=== PATIENT | male | born 1970 | race Caucasian/White ===

== ENCOUNTER 2018-01-06 10:28 | Emergency (ER) | payer SELFPAY ==
--- NOTE | 2018-01-06 11:04 | EDPHYS ---
Physician Documentation [facility] Name: Guillermo Acosta Age: 47 yrs Sex: Male : 1970 Arrival Date: 01/06/2018 Time: 10:30 Bed 20 Private MD: [place] San H ED Physician Wilmar Nicolas HPI: 01/06 10:58 This 47 yrs old Male presents to ER via Ambulatory with complaints of Ear jmm Pain, Jaw Pain. 10:58 The patient presents with pain. The complaints affect the right ear. Onset: The jmm symptoms/episode began/occurred gradually, 2 week(s) ago. Modifying factors: The symptoms are alleviated by nothing, the symptoms are aggravated by nothing. Associated signs and symptoms: Pertinent negatives: cough, fever. This is a 47 year old male with a history of HTN that presents to [facility] ED with right ear pain beginning 2 weeks ago. Patient states having no relieve after taking left over amoxicillin. COmplains of pain radiating to his jaw. Denies fever, denies cough. . Historical: - Allergies: 10:48 No Known Allergies; aj1 - Home Meds: 10:48 Lisinopril Oral [Active]; aj1 - PMHx: 10:48 Hypertension; Kidney stones; aj1 - Immunization history:: Flu vaccine is not up to date. - Social history:: Smoking status: Patient uses tobacco products, smokes one-half pack cigarettes per day. - Ebola Screening: : Patient denies travel to an Ebola-affected area in the 21 days before illness onset. ROS: 10:58 Constitutional: Negative for fever, chills, and weight loss. jmm 10:58 Cardiovascular: Negative for chest pain, palpitations, and edema, Respiratory: Negative for shortness of breath, cough, wheezing, and pleuritic chest pain, Abdomen/GI: Negative for abdominal pain, nausea, vomiting, diarrhea, and constipation. 10:58 ENT: Positive for ear pain. 10:58 All other systems are negative. Exam: 10:58 Head/Face: atraumatic. jmm 10:58 Chest/axilla: Normal chest wall appearance and motion. Cardiovascular: Regular rate and rhythm. No edema appreciated Respiratory: Normal respirations, no respiratory distress appreciated Abdomen/GI: Non distended, soft Skin: General appearance color normal MS/ Extremity: Moves all extremities, no obvious deformities appreciated, no edema noted to the lower extremities Neuro: Awake and alert, normal gait Psych: Behavior is normal, Mood is normal, Patient is cooperative and pleasant 10:58 Constitutional: The patient appears in no acute distress, alert, awake. 10:58 ENT: TM's: erythema, that is moderate, on the right, No mastoid tenderenss. Vital Signs: 10:48 BP 173 / 118; Pulse 85; Resp 18; Temp 97.5; Pulse Ox 97% on R/A; Weight 108.86 kg (R); aj1 Height 5 ft. 9 in. (175.26 cm); 11:20 BP 161 / 103; Pulse 76; Resp 18; Pulse Ox 99% on R/A; em 10:48 Body Mass Index 35.44 (108.86 kg, 175.26 cm) aj1 MDM: 10:58 Patient medically screened. [facility] 10:58 Data reviewed: vital signs, nurses notes. Counseling: I had a detailed discussion with [facility] the patient and/or guardian regarding: the historical points, exam findings, and any diagnostic results supporting the discharge/admit diagnosis, the need for outpatient follow up, to return to the emergency department if symptoms worsen or persist or if there are any questions or concerns that arise at home. Administered Medications: 11:12 Drug: Motrin 800 mg Route: PO; em 11:16 Follow up: Response: No adverse reaction em 11:14 Not Given (Physician Discretion): Tetracaine Drops 0.5 % 1 drops Ophthalmic once em 11:14 Drug: Tetracaine Solution (0.5 %) 1 drops {Note: given in right ear.} Route: Topical; em Site: face; 11:16 Follow up: Response: No adverse reaction em Disposition: 12:17 Co-signature as Attending Physician, Wilmar Nicolas MD. rn Disposition: 01/06/18 11:03 Discharged to Home. Impression: Acute serous otitis media. - Condition is Stable. - Discharge Instructions: Otitis Media, Adult. - Prescriptions for Clindamycin HCl 300 mg Oral Capsule - take 1 capsule by ORAL route every 6 hours for 10 days; 40 capsule. Ultracet 37.5- 325 mg Oral Tablet - take 1 tablet by ORAL route every 6 hours - for up to 5 days; do not exceed 8 tablets per day.; 12 tablet. - Medication Reconciliation Form, Thank You Letter, Antibiotic Education, Prescription Opioid Use form. - Follow up: Jaswinder, DO [place]; When: 2 - 3 days; Reason: Recheck today's complaints, Continuance of care, Re-evaluation by your physician. Signatures: Maria C Rossi RN RN aj1 Moris Rock PA PA josem Narinder Fajardo, INSIDE TECHNICAL SALES REPRESENTATIVE INSIDE TECHNICAL SALES REPRESENTATIVE em Wilmar Nicolas MD MD furniture associate: (The following items were deleted from the chart) 11:21 11:03 01/06/2018 11:03 Discharged to Home. Impression: Acute serous otitis media. em Condition is Stable. Forms are Medication Reconciliation Form, Thank You Letter, Antibiotic Education, Prescription Opioid Use. Follow up: [place] San; When: 2 - 3 days; Reason: Recheck today's complaints, Continuance of care, Re-evaluation by your physician. beverly
--- NOTE | 2018-01-06 11:04 | ER ---
Nurse's Notes [facility] Name: Guillermo Acosta Age: 47 yrs Sex: Male : 1970 Arrival Date: 01/06/2018 Time: 10:30 Bed 20 Private MD: [place] San H Diagnosis: Acute serous otitis media Presentation: 01/06 10:46 Presenting complaint: Patient states: He's been having pain in his right ear for the aj1 past 2 weeks. This morning he woke up and the pain is radiating down into his jaw. He has some left over Amoxicillin so he took that last week, which helped, but now the pain has come back. Transition of care: patient was not received from another setting of care. Onset of symptoms was November 2017. Risk Assessment: Do you want to hurt yourself or someone else? Patient reports no desire to harm self or others. Initial Sepsis Screen: Does the patient meet any 2 criteria? No. Patient's initial sepsis screen is negative. Does the patient have a suspected source of infection? No. Patient's initial sepsis screen is negative. Care prior to arrival: None. 10:46 Method Of Arrival: Ambulatory aj1 10:46 Acuity: CHECO 4 aj1 Triage Assessment: 10:48 General: Appears in no apparent distress. uncomfortable, Behavior is calm, cooperative, aj1 appropriate for age. Pain: Complains of pain in right ear Pain radiates to right jaw Pain currently is 7 out of 10 on a pain scale. EENT: Reports ear pain, jaw pain. Neuro: Level of Consciousness is awake, alert, obeys commands. Cardiovascular: Patient's skin is warm and dry. Respiratory: Airway is patent Respiratory effort is even, unlabored, Respiratory pattern is regular, symmetrical. Historical: - Allergies: 10:48 No Known Allergies; aj1 - Home Meds: 10:48 Lisinopril Oral [Active]; aj1 - PMHx: 10:48 Hypertension; Kidney stones; aj1 - Immunization history:: Flu vaccine is not up to date. - Social history:: Smoking status: Patient uses tobacco products, smokes one-half pack cigarettes per day. - Ebola Screening: : Patient denies travel to an Ebola-affected area in the 21 days before illness onset. Screenin:18 Abuse screen: Denies threats or abuse. Nutritional screening: No deficits noted. em Tuberculosis screening: No symptoms or risk factors identified. Fall Risk None identified. Assessment: 11:00 General: Appears in no apparent distress. comfortable, Behavior is calm, cooperative. em Pain: Complains of pain in right ear Pain currently is 7 out of 10 on a pain scale. Neuro: Level of Consciousness is awake, alert, obeys commands, Oriented to person, place, time, situation. Cardiovascular: Capillary refill < 3 seconds Patient's skin is warm and dry. Respiratory: Airway is patent Respiratory effort is even, unlabored, Respiratory pattern is regular, symmetrical. GI: Abdomen is flat. : No signs and/or symptoms were reported regarding the genitourinary system. EENT: Ear canal clear on right ear. Derm: Skin is intact, Skin is pink, warm \T\ dry. Musculoskeletal: Range of motion: intact in all extremities. Vital Signs: 10:48 BP 173 / 118; Pulse 85; Resp 18; Temp 97.5; Pulse Ox 97% on R/A; Weight 108.86 kg (R); aj1 Height 5 ft. 9 in. (175.26 cm); 11:20 BP 161 / 103; Pulse 76; Resp 18; Pulse Ox 99% on R/A; em 10:48 Body Mass Index 35.44 (108.86 kg, 175.26 cm) aj1 ED Course: 10:30 Patient arrived in ED. sb2 10:30 [place] San DO is Private Physician. sb2 10:47 Triage completed. aj1 10:48 Arm band placed on Patient placed in an exam room. aj1 10:50 Moris Rock PA is PHCP. jmm 10:50 Wilmar Nicolas MD is Attending Physician. jmm 11:00 Narinder Fajardo LVN is Primary Nurse. em 11:03 [place] San DO is Referral Physician. jmm 11:18 Patient has correct armband on for positive identification. Bed in low position. Call em light in reach. 11:18 No provider procedures requiring assistance completed. Patient did not have IV access em during this emergency room visit. Administered Medications: 11:12 Drug: Motrin 800 mg Route: PO; em 11:16 Follow up: Response: No adverse reaction em 11:14 Not Given (Physician Discretion): Tetracaine Drops 0.5 % 1 drops Ophthalmic once em 11:14 Drug: Tetracaine Solution (0.5 %) 1 drops {Note: given in right ear.} Route: Topical; em Site: face; 11:16 Follow up: Response: No adverse reaction em Outcome: 11:03 Discharge ordered by . beverly 11:18 Discharged to home ambulatory. em 11:18 Condition: good 11:18 Discharge instructions given to patient, Instructed on discharge instructions, follow up and referral plans. medication usage, Demonstrated understanding of instructions, follow-up care, medications, Prescriptions given X 2. 11:21 Patient left the ED. em Signatures: Maria C Rossi RN RN aj1 Moris Rock PA PA jmm Munoz, Edgar, CAMPAIGN ASSISTANT CAMPAIGN ASSISTANT em Cathy Donaldson sb2
[2018-01-06] MEDS ORDERED: TETRACAINE HCL 0.5% 2ML OPTH ONE (11:12)
[2018-01-06] MEDS ORDERED: IBUPROFEN 200 MG TAB PO ONE (11:12)
[2018-01-06] MEDS ORDERED: IBUPROFEN 400 MG TAB ONE (11:12)
[2018-01-06 11:27] VITALS: TEMP 97.5
[2018-01-06 11:29] VITALS: BP 161/103; O2SAT 99
== END 2018-01-06 11:21 | disposition home or self-care (01) ==
LOC: ER 10:28
DX: H65.01 Acute serous otitis media, right ear (principal); I10 Essential (primary) hypertension; F17.210 Nicotine dependence, cigarettes, uncomplicated
CPT/HCPCS: 99283

== ENCOUNTER 2018-01-24 18:14 | Emergency (ER) | payer SELFPAY ==
[2018-01-24] MEDS ORDERED: KETOROLAC 30 MG/ML INJ ONE (19:19)
[2018-01-24] MEDS ORDERED: NA CHLORIDE 0.9% 1,000 ML ONE (19:19)
[2018-01-24] MEDS ORDERED: ONDANSETRON 4 MG/2 ML VIAL ONE (19:19)
--- NOTE | 2018-01-24 19:28 | RAD REPORT ---
EXAM DESCRIPTION: CT - Stone Protocol - 01/24/2018 7:13 pm CLINICAL HISTORY: Abdominal pain, right flank pain COMPARISON: CT stone 2016 TECHNIQUE: Axial 5 mm thick images were obtained without oral or IV contrast. The [id number] span s the entirety of the system including uppermost abdomen and lung bases. All CT scans are performed using dose optimization technique as appropriate and may include automated exposure control or mA/KV adjustment according to patient size. FINDINGS: No hydronephrosis is present and no obstructing ureteral calculi. No suspicious renal mass es. Isodense masses and pyelonephritis are not excluded on a stone protocol CT scan. Urinary bladder is contracted limiting assessment. No bladder calculus seen. Prostate gland and seminal vesicles are normal range. Imaged portions of the liver, spleen and pancreas show no suspicious findings on non-contrast imaging . Gallbladder is contracted. Gallstones can be occult. Small gallstone is suspected in the fundus. An active gallbladder process is not seen. No biliary tree dilatation. No significant adrenal finding. No suspicious bowel findings. Appendix is normal. No mass or bulky lymphadenopathy. Clips are present near each inguinal canal presumably from prior he rnia repair. No residual or recurrent abdominal wall hernia. No abdominal wall hematoma. No free air, free fluid or inflammatory stranding. Patient has disc and bony degenerative change present. Prominent endplate spurring seen in the lower thoracic spine. Bilateral L5 pars interarticularis defects are present without spondylolisthesis. Rig ht L4 pars defect is present. Very advanced facet degenerative change present on the left at L4-5. L4 has shown slight anterior subluxation progression since the 2016 study. The L4-5 degenerative disc d isease has progressed. IMPRESSION: No hydronephrosis, obstructing calculus or acute finding. Isodense masses and pyelonephritis are not excluded on stone protocol technique. No acute GI process identifiable. No emergent finding seen. No residual or recurrent hernia defect and no muscle or abdominal wall hematoma seen. Progressive degenerative disc disease at L4-5. Right-sided L4 pars interarticularis defects seen. Sandro ateral L5 pars defects are present.
[2018-01-24 19:58] LABS: Urine Blood 1+ (NEG); Urine Glucose NEGATIVE (NEG); Urine Protein TRACE (NEG); Urine Specific Gravity >1.030 (1.005-1.030); Urine pH 5.5 (5.0-7.0)
[2018-01-24 20:01] LABS: Urine Bacteria NONE SEEN /HPF (NONE SEEN); Urine Culture Reflex Order NOT NEEDED
[2018-01-24 20:06] LABS: Albumin 3.6 g/dL (3.4-5.0); Bilirubin Direct 0.2 mg/dL (0-0.2); Bilirubin Total 0.5 mg/dL (0.2-1.0); Potassium 4.1 mmol/L (3.5-5.1); Protein, Total 7.4 g/dL (6.4-8.2)
[2018-01-24 20:40] LABS: Absolute Lymphocytes (CBC) 2.2 K/uL (0.7-4.9); Absolute Monocytes 0.4 K/uL (0.1-1.3); Absolute Neutrophil 2.8 K/uL (1.8-8.0); Basophils % 0.7 % (0-1.3); Eosinophils % 2.3 % (0-4.4); Hematocrit 42.4 % (39.6-49.0); Lymphocytes % 39.7 % (15.3-44.8); MCH 31.6 pg (27.0-35.0); MCV 92.4 fL (80-100); MPV 9.5 fL (7.6-11.3); Monocytes % 6.9 % (3.3-12.3); RBC Red Blood Cell Count 4.58 M/uL (4.33-5.43)
--- NOTE | 2018-01-24 20:46 | EDPHYS ---
Physician Documentation [facility] Name: Guillermo Acosta Age: 47 yrs Sex: Male : 1970 Arrival Date: 01/24/2018 Time: 18:15 Bed 13 Private MD: [place] [facility] H ED Physician Wilmar Nicolas HPI: 01/24 19:05 This 47 yrs old Male presents to ER via Ambulatory with complaints of Back cp Pain, Possible Kidney Stone. 19:05 The patient presents with pain that is acute. The symptoms are located in the right mid cp back and right low back. Onset: The symptoms/episode began/occurred 3 day(s) ago. The pain does not radiate. Associated signs and symptoms: Pertinent negatives: abdominal pain, chest pain, constipation, fever, incontinence, numbness, urinary retention, weakness. Severity of symptoms: in the emergency department the symptoms are unchanged, despite home interventions. 19:05 Patient reports history of kidney stones and pain worsened after lifting heavy cp generator at work 2 days ago. Historical: - Allergies: 18:37 No Known Allergies; aj1 - Home Meds: 18:37 lisinopril Oral [Active]; aj1 - PMHx: 18:37 Hypertension; Kidney stones; aj1 - Immunization history:: Flu vaccine is not up to date. - Social history:: Smoking status: Patient uses tobacco products, smokes one-half pack cigarettes per day. - Ebola Screening: : Patient denies travel to an Ebola-affected area in the 21 days before illness onset. ROS: 19:10 Constitutional: Negative for body aches, chills, fever, poor PO intake. cp 19:10 Eyes: Negative for injury, pain, redness, and discharge. cp 19:10 ENT: Negative for drainage from ear(s), ear pain, sore throat, difficulty swallowing, difficulty handling secretions. 19:10 Cardiovascular: Negative for chest pain, edema, palpitations. 19:10 Respiratory: Negative for cough, shortness of breath, wheezing. 19:10 Abdomen/GI: Negative for abdominal pain, nausea, vomiting, and diarrhea, constipation, anorexia, black/tarry stool, rectal bleeding, bowel incontinence. 19:10 Back: Positive for pain at rest, pain with movement, of the right mid back and right low back, Negative for decreased range of motion. 19:10 : Negative for urinary symptoms, difficulty urinating, bladder incontinence, testicular pain 19:10 MS/extremity: Negative for injury or acute deformity, decreased range of motion, paresthesias, swelling. 19:10 Neuro: Negative for altered mental status, gait disturbance, headache, numbness, weakness. 19:10 All other systems are negative. Exam: 19:15 Constitutional: The patient appears in no acute distress, alert, awake, non-toxic, well cp developed, well nourished. 19:15 Head/Face: Normocephalic, atraumatic. cp 19:15 Eyes: Periorbital structures: appear normal, Conjunctiva: normal, no exudate, no injection, Sclera: no appreciated abnormality, Lids and lashes: appear normal, bilaterally. 19:15 ENT: External ear(s): are unremarkable, Nose: is normal, Mouth: Lips: moist, Oral mucosa: pink and intact, moist, Posterior pharynx: is normal, airway is patent, no erythema, no exudate. 19:15 Neck: ROM/movement: is normal, is supple, without pain, no range of motions limitations, no nuchal rigidity. 19:15 Chest/axilla: Inspection: normal, Palpation: is normal, no crepitus, no tenderness. 19:15 Cardiovascular: Rate: normal, Rhythm: regular, Edema: is not appreciated, JVD: is not appreciated. 19:15 Respiratory: the patient does not display signs of respiratory distress, Respirations: normal, no use of accessory muscles, no retractions, no splinting, no tachypnea, labored breathing, is not present, Breath sounds: are clear throughout, no decreased breath sounds, no stridor, no wheezing. 19:15 Abdomen/GI: Inspection: abdomen appears normal, Bowel sounds: active, all quadrants, Palpation: abdomen is soft and non-tender, in all quadrants, rebound tenderness, is not appreciated, voluntary guarding, is not appreciated, involuntary guarding, is not appreciated. 19:15 Back: pain, that is moderate, of the right mid back and right low back, ROM is painful, with flexion, vertebral tenderness, is not appreciated, muscle spasm, is not present, Straight leg raises: of both lower extremities does not illicit pain. 19:15 Musculoskeletal/extremity: Exam is negative for bony tenderness, calf tenderness, decreased range of motion, deformity, edema, injury. 19:15 Skin: cellulitis, is not appreciated, no rash present. 19:15 Neuro: Orientation: to person, place \T\ time. Mentation: lucid, able to follow commands, Cerebellar function: is grossly normal, Motor: moves all fours, strength is normal, Sensation: no obvious gross deficits. Vital Signs: 18:37 BP 158 / 102; Pulse 65; Resp 18; Temp 97.6; Pulse Ox 97% on R/A; Weight 108.86 kg (R); aj1 Height 5 ft. 10 in. (177.80 cm) (R); Pain 7/10; 19:30 BP 152 / 99; Pulse 63; Resp 18; Pulse Ox 99% on R/A; kr2 20:58 BP 140 / 88; Pulse 66; Resp 17; Pulse Ox 98% on R/A; kr2 18:37 Body Mass Index 34.44 (108.86 kg, 177.80 cm) aj1 MDM: 18:39 Patient medically screened. cp 19:00 Differential diagnosis: Cholelithiasis chronic back pain, ruptured disc, spinal injury, cp sprain, Ureterolithiasis vertebral fracture. 20:45 Data reviewed: vital signs, nurses notes, lab test result(s), radiologic studies, CT cp scan. 20:45 Counseling: I had a detailed discussion with the patient and/or guardian regarding: the cp historical points, exam findings, and any diagnostic results supporting the discharge/admit diagnosis, lab results, radiology results, to return to the emergency department if symptoms worsen or persist or if there are any questions or concerns that arise at home. Response to treatment: the patient's symptoms have mildly improved after treatment, VSS. CT negative for acute findings. Will discharge to home for continued monitoring. 01/24 18:59 Order name: Basic Metabolic Panel; Complete Time: 20:08 cp 01/24 20:08 Interpretation: Normal except: CL 109; GFR 65. cp 01/24 18:59 Order name: CBC with Diff; Complete Time: 20:41 cp 01/24 18:59 Order name: Creatinine for Radiology; Complete Time: 20:08 cp 01/24 18:59 Order name: Hepatic Function; Complete Time: 20:08 cp 01/24 20:09 Interpretation: Normal except: ALK 127; GLOB 3.8; A/G 0.9. 01/24 18:59 Order name: Lipase; Complete Time: 20:08 01/24 19:25 Order name: Urine Microscopic Only; Complete Time: 20:08 01/24 20:09 Interpretation: Normal except: URBC 10-20. 01/24 18:59 Order name: IV Saline Lock; Complete Time: 19:39 01/24 18:59 Order name: Labs collected and sent; Complete Time: 19:39 01/24 18:59 Order name: CT Stone Protocol; Complete Time: 19:38 01/24 19:39 Interpretation: Report reviewed. 01/24 19:25 Order name: Urine Dipstick-Ancillary (obtain specimen); Complete Time: 19:26 01/24 19:29 Order name: Urine Dipstick--Ancillary (enter results); Complete Time: 20:08 mw2 Administered Medications: 19:30 Drug: NS 0.9% 1000 ml Route: IV; Rate: 1 bolus; Site: left antecubital; kr2 20:30 Follow up: Response: No adverse reaction; IV Status: Completed infusion kr2 19:35 Drug: Zofran 4 mg Route: IVP; Site: left antecubital; kr2 20:00 Follow up: Response: No adverse reaction kr2 19:36 Drug: TORadol 30 mg Route: IVP; Site: left antecubital; kr2 20:00 Follow up: Response: No adverse reaction; Pain is decreased kr2 Disposition: 01/25 17:29 Co-signature as Attending Physician, Wilmar Nicolas MD. rn Disposition: 01/24/18 20:45 Discharged to Home. Impression: Low back pain. - Condition is Stable. - Discharge Instructions: Back Pain, Adult, Back Exercises, [id number]. - Prescriptions for Ultracet 37.5- 325 mg Oral Tablet - take 1 tablet by ORAL route every 6 hours - for up to 5 days; do not exceed 8 tablets per day. no driving while taking medication; 20 tablet. Cyclobenzaprine 10 mg Oral Tablet - take 1 tablet by ORAL route every 8 hours As needed no driving while taking medication; 20 tablet. Medrol (Jose Miguel) 4 mg Oral Tablets, Dose Pack - take 1 tablet by ORAL route as directed - follow package instructions; 1 packet. - Medication Reconciliation Form, Thank You Letter, Antibiotic Education, Prescription Opioid Use form. - Follow up: Private Physician; When: 2 - 3 days; Reason: Recheck today's complaints. - Problem is new. - Symptoms have improved. Signatures: Dispatcher [employer] EDMaria C Petersen RN RN aj1 Wilmar Nicolas MD MD rn Page, Corey, PA PA cp Bettina Turner RN RN kr2 Corrections: (The following items were deleted from the chart) 01/24 21:01 20:45 01/24/2018 20:45 Discharged to Home. Impression: Low back pain. Condition is kr2 Stable. Forms are Medication Reconciliation Form, Thank You Letter, Antibiotic Education, Prescription Opioid Use. Follow up: Private Physician; When: 2 - 3 days; Reason: Recheck today's complaints. Problem is new. Symptoms have improved. cp 01/25 17:10 01/24 19:05 Patient reports history of kidney stones and pain worsened after lifting cp heavy object at work 3 days ago. cp
--- NOTE | 2018-01-24 20:46 | ER ---
Nurse's Notes [facility] Name: Guillermo Acosta Age: 47 yrs Sex: Male : 1970 Arrival Date: 01/24/2018 Time: 18:15 Bed 13 Private MD: Trenton San H Diagnosis: Low back pain Presentation: 01/24 18:35 Presenting complaint: Patient states: "I have a history of kidney stones, and my right aj1 side has been hurting for the past 3 days. Also Sunday I was lifting a generator and I did something to my back" Reports right flank pain, low back pain, midback pain. Reports dysuria, urinary frequency. Denies fever. Transition of care: patient was not received from another setting of care. Onset of symptoms was January 21, 2018. Risk Assessment: Do you want to hurt yourself or someone else? Patient reports no desire to harm self or others. Initial Sepsis Screen: Does the patient meet any 2 criteria? No. Patient's initial sepsis screen is negative. Does the patient have a suspected source of infection? No. Patient's initial sepsis screen is negative. Care prior to arrival: None. 18:35 Method Of Arrival: Ambulatory aj1 18:35 Acuity: CHECO 3 aj1 Triage Assessment: 18:37 General: Appears in no apparent distress. uncomfortable, Behavior is calm, cooperative, aj1 appropriate for age. Pain: Complains of pain in low back area, mid back area and anterior aspect of right lateral abdomen Pain currently is 7 out of 10 on a pain scale. Neuro: Level of Consciousness is awake, alert, obeys commands. Cardiovascular: Patient's skin is warm and dry. Respiratory: Airway is patent Respiratory effort is even, unlabored, Respiratory pattern is regular, symmetrical. : Reports burning with urination, urinary frequency. Musculoskeletal: Range of motion: intact in all extremities. Historical: - Allergies: 18:37 No Known Allergies; aj1 - Home Meds: 18:37 lisinopril Oral [Active]; aj1 - PMHx: 18:37 Hypertension; Kidney stones; aj1 - Immunization history:: Flu vaccine is not up to date. - Social history:: Smoking status: Patient uses tobacco products, smokes one-half pack cigarettes per day. - Ebola Screening: : Patient denies travel to an Ebola-affected area in the 21 days before illness onset. Screenin:45 Abuse screen: Denies threats or abuse. Denies injuries from another. Nutritional kr2 screening: No deficits noted. Tuberculosis screening: No symptoms or risk factors identified. Fall Risk None identified. Assessment: 18:45 General: Appears in no apparent distress. uncomfortable, well groomed, Behavior is kr2 calm, cooperative, appropriate for age. Pain: Complains of pain in lower back Pain currently is 7 out of 10 on a pain scale. Quality of pain is described as sharp, Is continuous, Alleviated by nothing. Neuro: Level of Consciousness is awake, alert, obeys commands, Oriented to person, place, time, situation, Appropriate for age. Cardiovascular: Capillary refill < 3 seconds in bilateral fingers Patient's skin is warm and dry. Respiratory: Airway is patent Respiratory effort is even, unlabored, Respiratory pattern is regular, symmetrical. GI: Abdomen is round non-distended, Patient currently denies nausea, vomiting. : Urine is michael Reports history of kidney stones that started with the same pain he is having now. EENT: Oral mucosa is moist. Derm: Skin is intact, is healthy with good turgor, Skin is pink, warm \\T\\ dry. Musculoskeletal: Circulation, motion, and sensation intact. 20:58 Reassessment: Patient appears in no apparent distress at this time. Patient and/or kr2 family updated on plan of care and expected duration. Pain level reassessed. Patient is alert, oriented x 3, equal unlabored respirations, skin warm/dry/pink. States pain is decreased Patient states feeling better. Patient states symptoms have improved. Vital Signs: 18:37 BP 158 / 102; Pulse 65; Resp 18; Temp 97.6; Pulse Ox 97% on R/A; Weight 108.86 kg (R); aj1 Height 5 ft. 10 in. (177.80 cm) (R); Pain 7/10; 19:30 BP 152 / 99; Pulse 63; Resp 18; Pulse Ox 99% on R/A; kr2 20:58 BP 140 / 88; Pulse 66; Resp 17; Pulse Ox 98% on R/A; kr2 18:37 Body Mass Index 34.44 (108.86 kg, 177.80 cm) aj ED Course: 18:15 Patient arrived in ED. sb2 18:15 San, Marce-Naseem, DO is Private Physician. sb2 18:36 Triage completed. aj1 18:37 Arm band placed on Patient placed in waiting room, Patient notified of wait time. aj1 18:38 Toro Arreguin PA is PHCP. cp 18:39 Wilmar Nicolas MD is Attending Physician. cp 18:45 Patient has correct armband on for positive identification. Bed in low position. Call kr2 light in reach. Side rails up X 1. Pulse ox on. NIBP on. 19:[address] jj2 19:11 Bettina Turner, DOMINGO is Primary Nurse. kr2 19:13 CT Stone Protocol In Process Unspecified. EDMS 19:13 CT completed. Patient tolerated procedure well. Patient moved back from [place]. nj 19:15 Urine collected: clean catch specimen, clear, michael colored, Amount Voided: 60mL. jp3 19:25 Missed attempt(s): 20 gauge in left antecubital area. Bleeding controlled, band aid kr2 applied, catheter tip intact. 19:26 Urine Microscopic Only Sent. jp3 19:30 Inserted saline lock: 20 gauge in left antecubital area, using aseptic technique. Blood kr2 collected. 21:00 No provider procedures requiring assistance completed. IV discontinued, intact, kr2 bleeding controlled, No redness/swelling at site. Pressure dressing applied. Administered Medications: 19:30 Drug: NS 0.9% 1000 ml Route: IV; Rate: 1 bolus; Site: left antecubital; kr2 20:30 Follow up: Response: No adverse reaction; IV Status: Completed infusion kr2 19:35 Drug: Zofran 4 mg Route: IVP; Site: left antecubital; kr2 20:00 Follow up: Response: No adverse reaction kr2 19:36 Drug: TORadol 30 mg Route: IVP; Site: left antecubital; kr2 20:00 Follow up: Response: No adverse reaction; Pain is decreased kr2 Outcome: 20:45 Discharge ordered by . cp 21:00 Discharged to home ambulatory. kr2 21:00 Condition: good 21:00 Discharge instructions given to patient, Instructed on discharge instructions, follow up and referral plans. medication usage, Demonstrated understanding of instructions, follow-up care, medications, Prescriptions given X 3. 21:01 Patient left the ED. kr2 Signatures: Dispatcher [employer] EDMaria C Petersen RN RN aj1 Vito Cates jj2 Toro Arreguin PA PA cp Jordan, Nathan nj Reaves, Karey, RN RN kr2 Cathy Donaldson sb2 Tripp Rivear jp3
[2018-01-24 21:25] VITALS: TEMP 97.6
[2018-01-24 21:28] VITALS: BP 140/88; O2SAT 98
== END 2018-01-24 21:01 | disposition home or self-care (01) ==
LOC: ER 18:14
DX: M54.5 Low back pain (principal); I10 Essential (primary) hypertension; F17.210 Nicotine dependence, cigarettes, uncomplicated; Z87.442 Personal history of urinary calculi
CPT/HCPCS: 36415; 74176; 76377; 80048; 80076; 81003; 81015; 83690; 85025; 96361; 96374; 96375; 99284; J2405; J7030

== ENCOUNTER 2018-04-02 18:36 | Emergency (ER) | payer SELFPAY ==
[2018-04-02] MEDS ORDERED: LIDOCAINE 1% W/EPI 1:100,000 MDV 50 ML VIAL ONE (19:48)
--- NOTE | 2018-04-02 19:54 | EDPHYS ---
Physician Documentation [facility] Name: Guillermo Acosta Age: 47 yrs Sex: Male : 1970 Arrival Date: 04/02/2018 Time: 18:37 Bed 12 Private MD: ED Physician Jerry Chowdhury HPI: 04/02 20:04 This 47 yrs old Male presents to ER via Ambulatory with complaints of wa Laceration To Hand. 20:04 The patient has a laceration occurred at home. The laceration(s) is(are) located on the wa left hand. Onset: The symptoms/episode began/occurred just prior to arrival. Associated signs and symptoms: Pertinent positives: persistent bleeding, Pertinent negatives: deformity. The patient has not experienced similar symptoms in the past. The patient has not recently seen a physician. tetanus UTD within the past 5 yrs. Historical: - Allergies: 19:04 No Known Allergies; ak1 - Home Meds: 19:04 lisinopril Oral [Active]; ak1 - PMHx: 19:04 Hypertension; Kidney stones; ak1 - PSHx: 19:04 Hernia repair; ak1 - Immunization history:: Adult Immunizations up to date, Last tetanus immunization: < 5 years ago. - Social history:: Smoking status: Patient uses tobacco products, smokes one-half pack cigarettes per day. - Ebola Screening: : No symptoms or risks identified at this time. - Family history:: not pertinent. - Hospitalizations: : No recent hospitalization is reported. ROS: 20:05 Constitutional: Negative for fever, chills, and weight loss, Eyes: Negative for injury, wa pain, redness, and discharge, ENT: Negative for injury, pain, and discharge, Neck: Negative for injury, pain, and swelling, Cardiovascular: Negative for chest pain, palpitations, and edema, Respiratory: Negative for shortness of breath, cough, wheezing, and pleuritic chest pain, Abdomen/GI: Negative for abdominal pain, nausea, vomiting, diarrhea, and constipation, Back: Negative for injury and pain, : Negative for injury, bleeding, discharge, and swelling, Neuro: Negative for headache, weakness, numbness, tingling, and seizure, Psych: Negative for depression, anxiety, suicide ideation, homicidal ideation, and hallucinations. 20:05 MS/extremity: Positive for laceration, of the left hand. 20:05 Skin: Positive for laceration(s), of the left hand. 20:05 All other systems are negative. Exam: 20:06 Constitutional: This is a well developed, well nourished patient who is awake, alert, wa and in no acute distress. Head/Face: Normocephalic, atraumatic. Eyes: Pupils equal round and reactive to light, extra-ocular motions intact. Lids and lashes normal. Conjunctiva and sclera are non-icteric and not injected. Cornea within normal limits. Periorbital areas with no swelling, redness, or edema. ENT: Nares patent. No nasal discharge, no septal abnormalities noted. Tympanic membranes are normal and external auditory canals are clear. Oropharynx with no redness, swelling, or masses, exudates, or evidence of obstruction, uvula midline. Mucous membranes moist. Neck: Trachea midline, no thyromegaly or masses palpated, and no cervical lymphadenopathy. Supple, full range of motion without nuchal rigidity, or vertebral point tenderness. No Meningismus. Chest/axilla: Normal chest wall appearance and motion. Nontender with no deformity. No lesions are appreciated. Cardiovascular: Regular rate and rhythm with a normal S1 and S2. No gallops, murmurs, or rubs. Normal PMI, no JVD. No pulse deficits. Respiratory: Lungs have equal breath sounds bilaterally, clear to auscultation and percussion. No rales, rhonchi or wheezes noted. No increased work of breathing, no retractions or nasal flaring. Abdomen/GI: Soft, non-tender, with normal bowel sounds. No distension or tympany. No guarding or rebound. No evidence of tenderness throughout. Back: No spinal tenderness. No costovertebral tenderness. Full range of motion. MS/ Extremity: Pulses equal, no cyanosis. Neurovascular intact. Full, normal range of motion. Neuro: Awake and alert, GCS 15, oriented to person, place, time, and situation. Cranial nerves II-XII grossly intact. Motor strength 5/5 in all extremities. Sensory grossly intact. Cerebellar exam normal. Normal gait. Psych: Awake, alert, with orientation to person, place and time. Behavior, mood, and affect are within normal limits. 20:06 Skin: injury, laceration(s), that can be described as clean, no foreign body, with mild bleeding, dorsal aspect of L thumb just distal to the wrist joint. about 2 cm in length. Vital Signs: 19:04 BP 188 / 132; Pulse 100; Resp 18; Temp 98.1; Pulse Ox 100% on R/A; Weight 102.06 kg ak1 (R); Height 5 ft. 10 in. (177.80 cm); Pain 0/10; 20:21 BP 145 / 92; Pulse 88; Resp 17; Pulse Ox 100% on R/A; rv 19:04 Body Mass Index 32.28 (102.06 kg, 177.80 cm) ak1 Laceration: 20:07 Wound Repair of 2cm ( 0.8in ) subcutaneous laceration to left hand. Linear shaped.. wa persistent venous bleeding. Distal neuro/vascular/tendon intact. Anesthesia: Local anesthetic administered with 1 mls of 1% lidocaine w/ Epi. Wound prep: Copious irrigation. Skin closed with 3 4-0 Vicryl using interrupted sutures and sterile technique. Dressed with Bacitracin. Patient tolerated well. MDM: 19:27 Patient medically screened. dc 20:08 Data reviewed: vital signs, nurses notes. dc 04/02 19:38 Order name: Wound Care; Complete Time: 19:54 dc 04/02 19:52 Order name: Dressing - Wound; Complete Time: 19:54 dc 04/02 19:52 Order name: Gloves, Sterile; Complete Time: 19:54 dc 04/02 19:52 Order name: Setup Suture Tray; Complete Time: 19:54 dc Administered Medications: No medications were administered Disposition: 04/02/18 19:54 Discharged to Home. Impression: Left hand laceration - no tendon compromise. - Condition is Stable. - Discharge Instructions: Laceration Care, Adult, Irim-se-Wahw. - Medication Reconciliation Form, Thank You Letter, Antibiotic Education, Prescription Opioid Use form. - Follow up: Private Physician; When: 2 - 3 days; Reason: Re-evaluation by your physician. - Problem is new. - Symptoms have improved. - Notes: keep wound clean. do not allow harsh chemicals to get in wound. return to ER or see your doctor immediately for any concerns including signs of infection. stitches are dissolvable and not need to be removed Signatures: Sandra Mathias RN RN ak1 TrentonJerry ulloa MD MD wa Vicente, Ronaldo RN RN rv Corrections: (The following items were deleted from the chart) 20:22 19:54 04/02/2018 19:54 Discharged to Home. Impression: Left hand laceration - no tendon rv compromise. Condition is Stable. Forms are Medication Reconciliation Form, Thank You Letter, Antibiotic Education, Prescription Opioid Use. Follow up: Private Physician; When: 2 - 3 days; Reason: Re-evaluation by your physician. Problem is new. Symptoms have improved. maicol
--- NOTE | 2018-04-02 19:54 | ER ---
Nurse's Notes [facility] Name: Guillermo Acosta Age: 47 yrs Sex: Male : 1970 Arrival Date: 04/02/2018 Time: 18:37 Bed 12 Private MD: Diagnosis: Left hand laceration - no tendon compromise Presentation: 04/02 19:02 Presenting complaint: Patient states: using box cutting slicing across the top of left ak1 thumb. pt stated he has not had his BP meds X3 days. Transition of care: patient was not received from another setting of care. Complicating Factors: There are no complicating factors for this patient. Onset of symptoms was April 02, 2018. Risk Assessment: Do you want to hurt yourself or someone else? Patient reports no desire to harm self or others. Initial Sepsis Screen: Does the patient meet any 2 criteria? No. Patient's initial sepsis screen is negative. Does the patient have a suspected source of infection? No. Patient's initial sepsis screen is negative. Note at 1800 pt cut hand. Care prior to arrival: None. 19:02 Method Of Arrival: Ambulatory ak1 19:02 Acuity: CHECO 4 ak1 Triage Assessment: 19:04 General: Appears in no apparent distress. ak1 Historical: - Allergies: 19:04 No Known Allergies; ak1 - Home Meds: 19:04 lisinopril Oral [Active]; ak1 - PMHx: 19:04 Hypertension; Kidney stones; ak1 - PSHx: 19:04 Hernia repair; ak1 - Immunization history:: Adult Immunizations up to date, Last tetanus immunization: < 5 years ago. - Social history:: Smoking status: Patient uses tobacco products, smokes one-half pack cigarettes per day. - Ebola Screening: : No symptoms or risks identified at this time. - Family history:: not pertinent. - Hospitalizations: : No recent hospitalization is reported. Screenin:31 Abuse screen: Denies threats or abuse. Denies injuries from another. Nutritional rv screening: No deficits noted. Tuberculosis screening: No symptoms or risk factors identified. Fall Risk None identified. Assessment: 19:29 General: Appears in no apparent distress. comfortable, Behavior is calm, cooperative. rv Pain: Complains of pain in left hand. Neuro: Level of Consciousness is awake, alert, obeys commands, Oriented to person, place, time. Cardiovascular: Capillary refill < 3 seconds. Respiratory: Airway is patent. GI: No signs and/or symptoms were reported involving the gastrointestinal system. : No signs and/or symptoms were reported regarding the genitourinary system. EENT: No signs and/or symptoms were reported regarding the EENT system. Derm: Wound noted left hand. Musculoskeletal: Reports Pain is 4 out of 10 on a pain scale. Injury Description: Laceration sustained to left hand is clean, 0.5 to 2.5 cm long, not bleeding, was sustained 30-60 minutes ago. is bleeding moderately. Vital Signs: 19:04 BP 188 / 132; Pulse 100; Resp 18; Temp 98.1; Pulse Ox 100% on R/A; Weight 102.06 kg ak1 (R); Height 5 ft. 10 in. (177.80 cm); Pain 0/10; 20:21 BP 145 / 92; Pulse 88; Resp 17; Pulse Ox 100% on R/A; rv 19:04 Body Mass Index 32.28 (102.06 kg, 177.80 cm) ak1 ED Course: 18:37 Patient arrived in ED. mr 19:03 Triage completed. ak1 19:04 Arm band placed on Patient placed in an exam room, on a stretcher, Patient notified of ak1 wait time. 19:11 Jerry Chowdhury MD is Attending Physician. ct 19:27 Jerry Chowdhury MD is Attending Physician. ct 19:31 Patient has correct armband on for positive identification. Call light in reach. NIBP rv on. 19:31 Wound care: to laceration located on left hand was cleaned with Hibiclens, Patient rv tolerated well. 19:54 Assist provider with laceration repair on left hand that was 2.5 cm. or less using rv Steri-strips. Set up tray. Performed by Jerry Chowdhury MD Dressed with 4X4s, Neosporin, Patient tolerated well. 20:22 Patient did not have IV access during this emergency room visit. rv Administered Medications: No medications were administered Outcome: 19:54 Discharge ordered by . wa 20:22 Discharged to home ambulatory. rv 20:22 Condition: improved 20:22 Discharge instructions given to patient, Instructed on discharge instructions, follow up and referral plans. wound care, Demonstrated understanding of instructions, follow-up care, wound care. 20:22 Patient left the ED. rv Signatures: Rut Peters Amber RN RN ak1 Jerry Chowdhury MD MD wa Vicente, Ronaldo, RN RN rv
[2018-04-02 20:46] VITALS: TEMP 98.1; O2SAT 100
[2018-04-02 20:48] VITALS: BP 145/92
== END 2018-04-02 20:22 | disposition home or self-care (01) ==
LOC: ER 18:36
PROC: 0JQK0ZZ Repair Left Hand Subcutaneous Tissue and Fascia, Open Approach (ICD-10-PCS; principal; 2018-04-02)
DX: S61.412A Laceration without foreign body of left hand, initial encounter (principal); I10 Essential (primary) hypertension; Z79.899 Other long term (current) drug therapy; F17.210 Nicotine dependence, cigarettes, uncomplicated; W26.0XXA Contact with knife, initial encounter; Y92.009 Unspecified place in unspecified non-institutional (private) residence as the place of occurrence of the external cause
CPT/HCPCS: 99283

== ENCOUNTER 2018-08-08 22:35 | Emergency (ER) | payer SELFPAY ==
[2018-08-08] MEDS ORDERED: MORPHINE 4 MG/ML SYR ONE (23:57)
[2018-08-08] MEDS ORDERED: ONDANSETRON 4 MG/2 ML VIAL ONE (23:57)
[2018-08-09 00:08] LABS: Urine Blood 2+ (NEG); Urine Glucose NEGATIVE (NEG); Urine Specific Gravity 1.025 (1.005-1.030)
[2018-08-09 00:09] LABS: Urine Protein NEGATIVE (NEG)
[2018-08-09 00:15] LABS: Urine Bacteria <20 /HPF (NONE SEEN); Urine RBC >50 /HPF (NONE SEEN)
[2018-08-09 00:16] LABS: Urine Culture Reflex Order NOT NEEDED
[2018-08-09 00:50] LABS: Absolute Lymphocytes (CBC) 2.3 K/uL (0.7-4.9); Absolute Monocytes 0.5 K/uL (0.1-1.3); Absolute Neutrophil 3.1 K/uL (1.8-8.0); Basophils % 1.1 % (0-1.3); Hematocrit 42.2 % (39.6-49.0); MPV 9.1 fL (7.6-11.3); Monocytes % 7.8 % (3.3-12.3); RBC Red Blood Cell Count 4.72 M/uL (4.33-5.43)
[2018-08-09 01:01] LABS: ALT/SGPT 29 U/L (12-78); AST/SGOT 17 U/L (15-37); Albumin 3.5 g/dL (3.4-5.0); Alkaline Phosphatase 141 U/L (45-117); BUN Blood Urea Nitrogen 17 mg/dL (7-18); Bicarbonate 28 mmol/L (21-32); Bilirubin Direct < 0.1 mg/dL (0-0.2); Bilirubin Total 0.3 mg/dL (0.2-1.0); Glucose Level 93 mg/dL (74-106); Lipase 94 U/L (73-393); Potassium 4.3 mmol/L (3.5-5.1); Protein, Total 6.9 g/dL (6.4-8.2); Sodium Level 143 mmol/L (136-145)
--- NOTE | 2018-08-09 02:16 | EDPHYS ---
Physician Documentation [facility] Name: Guillermo Acosta Age: 47 yrs Sex: Male : 1970 Arrival Date: 08/08/2018 Time: 22:36 Bed 6 Private MD: Trenton San H ED Physician Malcolm Qureshi HPI: 08/09 05:14 This 47 yrs old Male presents to ER via Ambulatory with complaints of Kidney tw4 Pain. 05:14 The patient complains of pain in the left mid back. The pain does not radiate. Onset: tw4 The symptoms/episode began/occurred today. Modifying factors: The symptoms are alleviated by nothing. the symptoms are aggravated by nothing. Associated signs and symptoms: The patient has no apparent associated signs or symptoms. The patient has not experienced similar symptoms in the past. Historical: - Allergies: 08/08 23:20 No Known Allergies; fc - Home Meds: 23:20 lisinopril 20 mg oral tab 1 tab once daily [Active]; terazosin 2 mg oral cap 1 cap once fc daily [Active]; - PMHx: 23:20 Hypertension; Kidney stones; fc - PSHx: 23:20 Hernia repair; Lithotripsy; fc - Immunization history:: Last tetanus immunization: up to date Flu vaccine is not up to date. - Social history:: Smoking status: Patient uses tobacco products, denies chronic smoking, but will smoke occasionally. - Ebola Screening: : Patient negative for fever greater than or equal to 101.5 degrees Fahrenheit, and additional compatible Ebola Virus Disease symptoms Patient denies exposure to infectious person Patient denies travel to an Ebola-affected area in the 21 days before illness onset. ROS: 08/09 05:14 Constitutional: Negative for fever, chills, and weight loss, Eyes: Negative for injury, tw4 pain, redness, and discharge, Cardiovascular: Negative for chest pain, palpitations, and edema, Respiratory: Negative for shortness of breath, cough, wheezing, and pleuritic chest pain, Abdomen/GI: Negative for abdominal pain, nausea, vomiting, diarrhea, and constipation, Back: Negative for injury and pain, MS/Extremity: Negative for injury and deformity, Skin: Negative for injury, rash, and discoloration. Exam: 05:14 Constitutional: This is a well developed, well nourished patient who is awake, alert, tw4 and in no acute distress. Head/Face: Normocephalic, atraumatic. Chest/axilla: Normal chest wall appearance and motion. Nontender with no deformity. No lesions are appreciated. Cardiovascular: Regular rate and rhythm with a normal S1 and S2. No gallops, murmurs, or rubs. Normal PMI, no JVD. No pulse deficits. Respiratory: Lungs have equal breath sounds bilaterally, clear to auscultation and percussion. No rales, rhonchi or wheezes noted. No increased work of breathing, no retractions or nasal flaring. Abdomen/GI: Soft, non-tender, with normal bowel sounds. No distension or tympany. No guarding or rebound. No evidence of tenderness throughout. 05:14 Back: pain, is absent, ROM is normal, normal spinal alignment noted, CVA tenderness, that is mild, is noted bilaterally. Vital Signs: 08/08 23:00 BP 172 / 112; Pulse 87; Resp 18; Temp 98.4(O); Pulse Ox 98% on R/A; Weight 104.33 kg fc (R); Height 2 ft. 10 in. (86.36 cm) (R); Pain 8/10; 08/09 00:15 BP 163 / 97; Pulse 78; Resp 18; Pulse Ox 97% on R/A; lp1 01:41 BP 160 / 96; Pulse 76; Resp 16; Temp 98.4; Pulse Ox 97% on R/A; ak1 08/08 23:00 Body Mass Index 139.88 (104.33 kg, 86.36 cm) fc MDM: 08/08 23:37 Patient medically screened. tw4 08/09 05:14 Differential diagnosis: nephrolithiasis, pyelonephritis, UTI. Data reviewed: vital tw4 signs, EMS record. Data interpreted: monitor technician: rhythm is normal sinus rhythm, Pulse oximetry: Interpretation: normal. Counseling: I had a detailed discussion with the patient and/or guardian regarding: the historical points, exam findings, and any diagnostic results supporting the discharge/admit diagnosis. 05:21 Medication response: morphine relieved the patient's pain. Symptoms have resolved, tw4 Response to treatment: the patient's symptoms have markedly improved after treatment, and as a result, I will discharge patient. Special discussion: Based on the patient's Hx, exam, and Dx evaluation, there is no indication for emergent surgery or inpatient Tx. It is understood by the patient/guardian that if the Sx's persist or worsen they need to return immediately for re-evaluation. I discussed with the patient/guardian in detail that at this point there is no indication for admission to the hospital. It is understood, however, that if the symptoms persist or worsen the patient needs to return immediately for re-evaluation. 08/08 23:38 Order name: Basic Metabolic Panel [facility] 08/08 23:38 Order name: CBC with Diff [facility] 08/08 23:38 Order name: Creatinine for Radiology [facility] 08/08 23:38 Order name: Hepatic Function [facility] 08/08 23:38 Order name: Lipase [facility] 08/08 23:38 Order name: Urine Microscopic Only; Complete Time: 01:35 [facility] 08/09 01:35 Interpretation: Normal except: URBC >50. [facility] 08/08 23:28 Order name: Urine Dipstick-Ancillary (obtain specimen); Complete Time: 00:15 [facility] 08/08 23:38 Order name: IV Saline Lock; Complete Time: 00:14 [facility] 08/08 23:40 Order name: CT Stone Protocol 08/08 23:40 Order name: Urine Dipstick--Ancillary (enter results) [facility] 08/08 23:38 Order name: Labs collected and sent; Complete Time: 00:14 [facility] 08/09 00:17 Order name: Labs - recollect needed; Complete Time: 00:42 cm6 Administered Medications: 00:14 Drug: morphine 4 mg Route: IVP; Site: left antecubital; lp1 01:43 Follow up: Response: No adverse reaction ak1 00:14 Drug: Zofran 4 mg Route: IVP; Site: left antecubital; lp1 01:42 Follow up: Response: No adverse reaction ak1 Disposition: 08/09/18 02:15 Discharged to Home. Impression: Calculus of kidney with calculus of ureter. - Condition is Stable. - Discharge Instructions: Kidney Stones, Renal Colic, Kidney Stones, Uofw-in-Shmv. - Prescriptions for Ibuprofen 800 mg Oral Tablet - take 1 tablet by ORAL route every 8 hours As needed take with food; 30 tablet. Tylenol- Codeine #3 300-30 mg Oral Tablet - take 2 tablet by ORAL route every 6 hours As needed; 6 tablet. Flomax 0.4 mg Oral Capsule, Sust. Release 24 hr - take 1 capsule by ORAL route once daily 1/2 hour following the same meal each day; 30 capsule. - Medication Reconciliation Form, Thank You Letter, Antibiotic Education, Prescription Opioid Use form. - Follow up: Trenton San DO; When: Upon discharge from the Emergency Department; Reason: If symptoms return, Recheck today's complaints, Continuance of care. - Problem is new. - Symptoms have improved. Signatures: Dispatcher [employer] EDGA Hue Gillis, RN RN fc Courtney Hooper RN RN lp1 Sandra Mathias RN RN ak1 Malcolm Qureshi MD MD tw4 Marely Matthews cm6 Corrections: (The following items were deleted from the chart) 08/08 23:40 23:38 Abdomen Pelvis W Con+CT.RAD.BRZ ordered. EDGA EDMS 23:42 23:38 Stone Protocol+CT.RAD.BRZ ordered. EDGA EDGA 08/09 02:31 02:15 08/09/2018 02:15 Discharged to Home. Impression: Calculus of kidney with calculus ak1 of ureter. Condition is Stable. Forms are Medication Reconciliation Form, Thank You Letter, Antibiotic Education, Prescription Opioid Use. Follow up: Trenton San; When: Upon discharge from the Emergency Department; Reason: If symptoms return, Recheck today's complaints, Continuance of care. Problem is new. Symptoms have improved. tw4
--- NOTE | 2018-08-09 02:16 | ER ---
Nurse's Notes [facility] Name: Guillermo Acosta Age: 47 yrs Sex: Male : 1970 Arrival Date: 08/08/2018 Time: 22:36 Bed 6 Private MD: Trenton San H Diagnosis: Calculus of kidney with calculus of ureter Presentation: 08/08 23:00 Presenting complaint: Patient states: that he is having right sided kidney pain that fc started this am. Denies any problems urinating or any dark urine. Transition of care: patient was not received from another setting of care. Onset of symptoms was August 08, 2018. Risk Assessment: Do you want to hurt yourself or someone else? Patient reports no desire to harm self or others. Initial Sepsis Screen: Does the patient meet any 2 criteria? No. Patient's initial sepsis screen is negative. Does the patient have a suspected source of infection? No. Patient's initial sepsis screen is negative. Care prior to arrival: None. 23:00 Method Of Arrival: Ambulatory fc 23:00 Acuity: CHECO 3 fc Triage Assessment: 23:27 General: Appears in no apparent distress. Behavior is calm, cooperative. ak1 Historical: - Allergies: 23:20 No Known Allergies; fc - Home Meds: 23:20 lisinopril 20 mg oral tab 1 tab once daily [Active]; terazosin 2 mg oral cap 1 cap once fc daily [Active]; - PMHx: 23:20 Hypertension; Kidney stones; fc - PSHx: 23:20 Hernia repair; Lithotripsy; fc - Immunization history:: Last tetanus immunization: up to date Flu vaccine is not up to date. - Social history:: Smoking status: Patient uses tobacco products, denies chronic smoking, but will smoke occasionally. - Ebola Screening: : Patient negative for fever greater than or equal to 101.5 degrees Fahrenheit, and additional compatible Ebola Virus Disease symptoms Patient denies exposure to infectious person Patient denies travel to an Ebola-affected area in the 21 days before illness onset. Screenin:26 Abuse screen: Denies threats or abuse. Denies injuries from another. Nutritional ak1 screening: No deficits noted. Tuberculosis screening: No symptoms or risk factors identified. Fall Risk None identified. Assessment: 04/12 01:41 Reassessment: Patient appears in no apparent distress at this time. No changes from ak1 previously documented assessment. Patient and/or family updated on plan of care and expected duration. Pain level reassessed. Patient is alert, oriented x 3, equal unlabored respirations, skin warm/dry/pink. Patient states feeling better. Patient states symptoms have improved. General: Appears in no apparent distress. Behavior is calm, cooperative. Pain: Complains of pain in right flank. Vital Signs: 08/08 23:00 BP 172 / 112; Pulse 87; Resp 18; Temp 98.4(O); Pulse Ox 98% on R/A; Weight 104.33 kg fc (R); Height 2 ft. 10 in. (86.36 cm) (R); Pain 8/10; 08/09 00:15 BP 163 / 97; Pulse 78; Resp 18; Pulse Ox 97% on R/A; lp1 01:41 BP 160 / 96; Pulse 76; Resp 16; Temp 98.4; Pulse Ox 97% on R/A; ak1 08/08 23:00 Body Mass Index 139.88 (104.33 kg, 86.36 cm) ED Course: 08/08 22:36 Patient arrived in ED. do 22:36 Trenton San DO is Private Physician. do 23:00 Arm band placed on Patient placed in an exam room, on a stretcher. fc 23:17 Triage completed. fc 23:26 Sandra Mathias, RN is Primary Nurse. ak1 23:26 Patient has correct armband on for positive identification. Bed in low position. Call ak1 light in reach. Side rails up X 1. Pulse ox on. NIBP on. 23:37 Malcolm Qureshi MD is Attending Physician. tw4 23:46 CT completed. Patient tolerated procedure well. Patient moved to CT via wheelchair. sj Patient moved back from CT. 23:59 CT Stone Protocol In Process Unspecified. EDMS 08/09 00:14 Inserted saline lock: 20 gauge in left antecubital area, using aseptic technique. lp1 01:42 No provider procedures requiring assistance completed. ak1 02:14 Trenton San DO is Referral Physician. tw4 02:31 IV discontinued, intact, bleeding controlled, No redness/swelling at site. Pressure ak1 dressing applied. Administered Medications: 00:14 Drug: morphine 4 mg Route: IVP; Site: left antecubital; lp1 01:43 Follow up: Response: No adverse reaction ak1 00:14 Drug: Zofran 4 mg Route: IVP; Site: left antecubital; lp1 01:42 Follow up: Response: No adverse reaction ak1 Outcome: 02:15 Discharge ordered by . tw4 02:29 Discharged to home ambulatory. ak1 02:29 Condition: stable 02:29 Discharge instructions given to patient, Instructed on discharge instructions, follow up and referral plans. no drinking with medication, no driving heavy equipment, medication usage, Demonstrated understanding of instructions, follow-up care, medications, Prescriptions given X 3. 02:31 Patient left the ED. ak1 Signatures: Dispatcher [employer] EDJulia Daly Felicia, RN RN Courtney Hooper RN RN lp1 Sandra Mathias RN RN ak1 Lorrie Adams Terrence, MD MD tw4
[2018-08-09 02:56] VITALS: TEMP 98.4
[2018-08-09 02:57] VITALS: O2SAT 97
[2018-08-09 02:58] VITALS: BP 160/96
--- NOTE | 2018-08-09 11:52 | RAD REPORT ---
EXAM DESCRIPTION: CT - Stone Protocol - 08/09/2018 12:09 am CLINICAL HISTORY: The patient is 48 years old and is Male; FLANK PAIN TECHNIQUE: Axial computed tomography images of the abdomen and pelvis without intravenous contrast. Sagittal and coronal reformatted images were created and reviewed. This CT exam was performed usi ng one or more of the following dose reduction techniques: automated exposure control, adjustment o f the mA and/or kV according to patient size, and/or use of iterative reconstruction technique. COMPARISON: CT of the abdomen and pelvis January 24, 2018. FINDINGS: LUNG BASES: Unremarkable. No mass. No consolidation. ABDOMEN: LIVER: Homogeneous without focal mass. GALLBLADDER AND BILE DUCTS: The gallbladder is contracted. PANCREAS: Unremarkable. No ductal dilation. SPLEEN: Unremarkable. ADRENALS: Unremarkable. No mass. KIDNEYS AND URETERS: Punctate bilateral intrarenal calcifications are present. No obstructing re nal or ureteral calculus is seen. There is no hydronephrosis or hydroureter of either kidney. STOMACH AND BOWEL: The stomach is well distended with food contents. The small bowel is normal i n caliber. Stool is present throughout the colon. There is no mucosal thickening or evidence of bowel obstruction. PELVIS: APPENDIX: The appendix is normal in caliber without surrounding inflammation. BLADDER: The bladder is nearly empty. No stones. REPRODUCTIVE: Calcifications are present in the region of the prostate. ABDOMEN and PELVIS: INTRAPERITONEAL SPACE: Unremarkable. No free air. No significant fluid collection. BONES/JOINTS: Bilateral pars defects are present at L5 without significant anterolisthesis. Ante rolisthesis of L4 on L5 is noted secondary to pars defect on the right at this level. Neural foramina l narrowing is noted most prominently at L4-L5. SOFT TISSUES: The soft tissues are normal. VASCULATURE: Unremarkable. No abdominal aortic aneurysm. LYMPH NODES: Unremarkable. No enlarged lymph nodes. IMPRESSION: 1. Bilateral nephrolithiasis without obstruction. 2. Normal appendix. No bowel obstruction. Electronically signed by: Izzy Curtis MD 08/09/2018 12:03 AM CDT Due to temporary technical issues with the PACS/Fluency reporting system, reports are being signed by the in house radiologist as a courtesy to ensure prompt reporting. The interpreting radiologist is f ully responsible for the content of the report.
== END 2018-08-09 02:31 | disposition home or self-care (01) ==
LOC: ER 22:35
DX: N20.2 Calculus of kidney with calculus of ureter (principal); I10 Essential (primary) hypertension; Z72.0 Tobacco use; Z87.442 Personal history of urinary calculi
CPT/HCPCS: 36415; 74176; 76377; 81003; 81015; 85025; 96374; 96375; 99284; J2405

== ENCOUNTER 2018-11-13 10:49 | Emergency (ER) | payer SELFPAY ==
--- NOTE | 2018-11-13 12:51 | RAD REPORT ---
EXAM DESCRIPTION: RAD - Hand Right 3 View - 11/13/2018 12:43 pm CLINICAL HISTORY: fall, hand injury COMPARISON: <Comparisons> FINDINGS: Soft tissue swelling is seen affecting the fifth finger. Cortical irregularity is seen aff ecting the distal aspect of the middle phalanx which may represent a mild fracture. Correlation with point tenderness in this location is advised. No radiopaque foreign body evident.
--- NOTE | 2018-11-13 12:51 | RAD REPORT ---
EXAM DESCRIPTION: RAD - Foot Left 3 View - 11/13/2018 12:42 pm CLINICAL HISTORY: stepped on glass COMPARISON: No comparisonsNo comparisons FINDINGS: No acute fracture is identified. Prominent posterior calcaneal spur. A radiopaque foreign body not seen.
--- NOTE | 2018-11-13 13:28 | EDPHYS ---
Physician Documentation [facility] Name: Guillermo Acosta Age: 48 yrs Sex: Male : 1970 Arrival Date: 11/13/2018 Time: 10:52 Bed 26 Private MD: Trenton San H ED Physician Wilmar Nicolas HPI: 11/13 12:04 This 48 yrs old Male presents to ER via Ambulatory with complaints of Finger jmm Injury, Glass In Foot. 12:04 The patient presents with an injury, pain. Onset: The symptoms/episode began/occurred jmm acutely, today. Modifying factors: The symptoms are alleviated by elevation of extremity, the symptoms are aggravated by weight bearing. Associated signs and symptoms: Pertinent negatives: fever, numbness, rash, tingling, warmth, weakness. This is a 48 year old male with a history of htn that presents to the ED with complaints of left foot pain. Patient states stepping on glass while wearing a clean sock. Patient states he fell and injured his right 5th finger during the fall. Patient denies other injury. . Historical: - Allergies: 10:57 No Known Allergies; hj - PMHx: 10:57 Hypertension; Kidney stones; hj - PSHx: 10:57 Hernia repair; Lithotripsy; hj - Immunization history:: Adult Immunizations unknown. - Social history:: Smoking status: Patient uses tobacco products. - Ebola Screening: : No symptoms or risks identified at this time. ROS: 12:04 Constitutional: Negative for fever, chills, and weight loss, Cardiovascular: Negative jmm for chest pain, palpitations, and edema, Respiratory: Negative for shortness of breath, cough, wheezing, and pleuritic chest pain. 12:04 MS/extremity: Positive for injury or acute deformity, pain. 12:04 All other systems are negative. Exam: 12:04 Constitutional: This is a well developed, well nourished patient who is awake, alert, jmm and in no acute distress. Head/Face: atraumatic. Eyes: EOMI, no conjunctival erythema appreciated ENT: Moist Mucus Membranes Neck: Trachea midline, Supple Chest/axilla: Normal chest wall appearance and motion. Cardiovascular: Regular rate and rhythm. No edema appreciated Respiratory: Normal respirations, no respiratory distress appreciated Abdomen/GI: Non distended, soft Back: Normal ROM 12:04 Musculoskeletal/extremity: Pain on palpation of the right 5th finger, painful ROM appreciated, < 2 sec dist cap refill, NVI. 12:04 Skin: puncture noted to the plantar surface of the left foot, no active bleeding appreciated, full dorsalis pulse, compartments are soft, NVI. 12:04 Neuro: Orientation: is normal, Mentation: is normal, Memory: is normal, Gait: is steady. 12:04 Psych: Behavior/mood is pleasant, cooperative. Vital Signs: 10:57 BP 185 / 100; Pulse 92; Resp 18; Temp 98.1(TE); Pulse Ox 100% on R/A; Weight 102.06 kg; hj Height 5 ft. 10 in. (177.80 cm); Pain 7/10; 11:53 BP 172 / 110; Pulse 90; Resp 16 S; Temp 97.7(TE); Pulse Ox 97% on R/A; Pain 7/10; aa5 13:30 BP 179 / 100; Pulse 88; Resp 18 S; Temp 97.8(TE); Pulse Ox 99% on R/A; Pain 7/10; aa5 10:57 Body Mass Index 32.28 (102.06 kg, 177.80 cm) MDM: 12:04 Patient medically screened. beverly 13:25 Data reviewed: vital signs, nurses notes. Counseling: I had a detailed discussion with beverly the patient and/or guardian regarding: the historical points, exam findings, and any diagnostic results supporting the discharge/admit diagnosis, radiology results, the need for outpatient follow up, to return to the emergency department if symptoms worsen or persist or if there are any questions or concerns that arise at home. ED course: Patient advised to follow up with hand surgery for reevaluation. Patient otherwise given wound infection return precautions. Patient understood and agrees with the plan of care. . 11/13 12:07 Order name: Foot Left 3 View XRAY; Complete Time: 13:08 [facility] 11/13 12:07 Order name: Hand Right 3 View XRAY; Complete Time: 13:08 [facility] 11/13 13:08 Order name: Finger Splint; Complete Time: 13:52 [facility] Administered Medications: No medications were administered Disposition: 15:59 Co-signature as Attending Physician, Wilmar Nicolas MD. rn Disposition: 11/13/18 13:28 Discharged to Home. Impression: Right 5th Finger Fracture, Puncture wound without foreign body, left foot. - Condition is Stable. - Discharge Instructions: Finger Fracture, Puncture Wound. - Prescriptions for Bactroban 2 % Topical Ointment - Apply to affected area 1 application by TOPICAL route every 12 hours; 30 gram. Lisinopril 20 mg Oral Tablet - take 1 tablet by ORAL route once daily; 20 tablet. - Medication Reconciliation Form, Thank You Letter, Antibiotic Education, Prescription Opioid Use form. - Follow up: Jhonny Juarez MD; When: 2 - 3 days; Reason: Recheck today's complaints, Continuance of care, Re-evaluation by your physician. Signatures: Dispatcher [employer] EDMS Moris Rock PA PA jmm Nieto, Roman, MD MD rn Calderon, Audri, RN RN aa5 Gus Denton RN RN hj Corrections: (The following items were deleted from the chart) 14:13 13:28 11/13/2018 13:28 Discharged to Home. Impression: Right 5th Finger Fracture; aa5 Puncture wound without foreign body, left foot. Condition is Stable. Forms are Medication Reconciliation Form, Thank You Letter, Antibiotic Education, Prescription Opioid Use. Follow up: Jhonny Juarez; When: 2 - 3 days; Reason: Recheck today's complaints, Continuance of care, Re-evaluation by your physician. beverly
--- NOTE | 2018-11-13 13:28 | ER ---
Nurse's Notes [facility] Name: Guillermo Acosta Age: 48 yrs Sex: Male : 1970 Arrival Date: 11/13/2018 Time: 10:52 Bed 26 Private MD: Trenton San H Diagnosis: Right 5th Finger Fracture;Puncture wound without foreign body, left foot Presentation: 11/13 10:55 Presenting complaint: Patient states: i stepped on pieces of glass and hurt my L foot hj and fell and hurt my R pinky; reports pain; happened 3 hours ago;. Transition of care: patient was not received from another setting of care. Onset of symptoms was November 13, 2018. Risk Assessment: Do you want to hurt yourself or someone else? Patient reports no desire to harm self or others. Initial Sepsis Screen: Does the patient meet any 2 criteria? No. Patient's initial sepsis screen is negative. Does the patient have a suspected source of infection? No. Patient's initial sepsis screen is negative. Care prior to arrival: None. 10:55 Method Of Arrival: Ambulatory 10:55 Acuity: CHECO 4 hj Historical: - Allergies: 10:57 No Known Allergies; hj - PMHx: 10:57 Hypertension; Kidney stones; hj - PSHx: 10:57 Hernia repair; Lithotripsy; hj - Immunization history:: Adult Immunizations unknown. - Social history:: Smoking status: Patient uses tobacco products. - Ebola Screening: : No symptoms or risks identified at this time. Screenin:45 Abuse screen: Denies threats or abuse. Nutritional screening: No deficits noted. aa5 Tuberculosis screening: No symptoms or risk factors identified. Fall Risk None identified. Assessment: 11:45 General: Appears comfortable, Behavior is calm, cooperative. Pain: Complains of pain in aa5 right little finger and left foot Pain does not radiate. Pain currently is 7 out of 10 on a pain scale. Quality of pain is described as sharp, Pain began today at 0800 Is continuous. Neuro: Level of Consciousness is awake, alert, obeys commands, Oriented to person, place, time, situation. Cardiovascular: Heart tones S1 S2 present Rhythm is regular. Respiratory: Airway is patent Respiratory effort is even, unlabored, Respiratory pattern is regular, symmetrical. GI: No signs and/or symptoms were reported involving the gastrointestinal system. : No signs and/or symptoms were reported regarding the genitourinary system. EENT: No signs and/or symptoms were reported regarding the EENT system. Derm: Skin is pink, warm \\T\\ dry. Bruising that is dark purple, on right little finger and swelling noted to right little finger. Small puncture wound noted to left ball of foot, no active bleeding noted. Musculoskeletal: Range of motion: intact in all extremities. 11:45 Reassessment: Pt states "I take lisinopril for my blood pressure but I haven't taken it aa5 today". Pt states "I still have some (lisinopril tabs) at home, I just haven't taken it". . 13:30 Reassessment: pre-made splint applied to right little finger. . aa5 13:55 Reassessment: Patient is alert, oriented x 3, equal unlabored respirations, skin aa5 warm/dry/pink. Pt was instructed to take lisinopril during d/c home instructions. Pt's family requesting prescription for lisinopril at this time, pt states "I did run out of lisinopril". PA was notified and prescription for lisinopril was given. . Vital Signs: 10:57 BP 185 / 100; Pulse 92; Resp 18; Temp 98.1(TE); Pulse Ox 100% on R/A; Weight 102.06 kg; hj Height 5 ft. 10 in. (177.80 cm); Pain 7/10; 11:53 BP 172 / 110; Pulse 90; Resp 16 S; Temp 97.7(TE); Pulse Ox 97% on R/A; Pain 7/10; aa5 13:30 BP 179 / 100; Pulse 88; Resp 18 S; Temp 97.8(TE); Pulse Ox 99% on R/A; Pain 7/10; aa5 10:57 Body Mass Index 32.28 (102.06 kg, 177.80 cm) ED Course: 10:52 Patient arrived in ED. ag5 10:52 Trenton San DO is Private Physician. ag5 10:57 Triage completed. 10:57 Arm band placed on left wrist. 11:28 Hanane Guillen, RN is Primary Nurse. aa5 11:45 Patient has correct armband on for positive identification. aa5 11:59 Moris Rock [facility] 11:59 Wilmar Nicolas MD is Attending Physician. jmm 12:43 Foot Left 3 View XRAY In Process Unspecified. EDMS 12:43 Hand Right 3 View XRAY In Process Unspecified. EDMS 13:27 Jhonny Juarez MD is Referral Physician. [facility] 13:30 No provider procedures requiring assistance completed. Patient did not have IV access aa5 during this emergency room visit. Administered Medications: No medications were administered Outcome: 13:28 Discharge ordered by MD. [facility] 13:55 Discharged to home ambulatory, with family. aa5 13:55 Condition: stable 13:55 Discharge instructions given to patient, Instructed on discharge instructions, follow up and referral plans. medication usage, Demonstrated understanding of instructions, follow-up care, medications, Prescriptions given X 2. 13:57 Patient left the ED. aa5 Signatures: Dispatcher [employer] EDOH Moris Rock PA PA [facility] Hanane Guillen, RN RN aa5 Gus Denton, DOMINGO RN Jinny Newsome ag5 Corrections: (The following items were deleted from the chart) 11:00 10:57 Pulse 92bpm; Resp 18bpm; Pulse Ox 100% RA; Temp 98.1F Temporal; 102.06 kg; Height hj 5 ft. 10 in.; BMI: 32.2; Pain 7/10; hj 11:01 10:57 BP 195 / 100; Pulse 92bpm; Resp 18bpm; Pulse Ox 100% RA; Temp 98.1F Temporal; hj 102.06 kg; Height 5 ft. 10 in.; BMI: 32.2; Pain 7/10; hj 14:15 14:13 Patient left the ED. aa5 aa5
[2018-11-13 16:06] VITALS: BP 172/110; TEMP 97.7; O2SAT 97
== END 2018-11-13 14:13 | disposition home or self-care (01) ==
LOC: ER 10:49
DX: S62.636A Displaced fracture of distal phalanx of right little finger, initial encounter for closed fracture (principal); W18.31XA Fall on same level due to stepping on an object, initial encounter; S91.331A Puncture wound without foreign body, right foot, initial encounter; W25.XXXA Contact with sharp glass, initial encounter; I10 Essential (primary) hypertension; Z72.0 Tobacco use